=== PATIENT | male | born 1980 | race Caucasian/White ===

== ENCOUNTER 2023-11-23 07:16 | Outpatient (CLI) | payer OTHER, SELFPAY ==
--- NOTE | ~2023-11-23 | XR_ITS ---
AP, oblique, and lateral views of the right great toe CLINICAL HISTORY: Pain FINDINGS: No fracture or dislocation seen. Joint spaces are preserved. Soft tissues are unremarkable. IMPRESSION: Unremarkable exam. Reviewed, dictated and finalized at location M. IMPRESSION: Unremarkable exam.
[2023-11-23 07:53] LABS: Hematocrit 46.7 % (42.0-52.0); Hemoglobin 15.8 g/dL (14.0-18.0); Mean Corpuscular HGB Conc 33.8 g/dl (32-36); Mean Corpuscular Hemoglobin 30.4 pg (26-34); Mean Corpuscular Volume 89.8 fl (80-100); Mean Platelet Volume 10.4 fl (7.4-10.4); Platelet Count Result 192 k/mm3 (150-375); Red Cell Distribution Width 11.9 % (11.5-14.5); White Blood Count 5.4 K/mm3 (4.5-10.0)
[2023-11-23 07:58] LABS: Alanine Aminotransferase 91 U/L (6-50); Albumin Level 4.3 g/dL (3.5-5.1); Alkaline Phosphatase 111 U/L (38-126); Anion Gap 3 mmol/L (8-16); Aspartate Amino Transferase 53 U/L (17-59); Bilirubin,Total 0.8 mg/dL (0.2-1.3); Blood Urea Nitrogen 18 mg/dL (9-20); Calcium 9.2 mg/dL (8.4-10.2); Carbon Dioxide 31 mmol/L (22-30); Chloride 100 mmol/L (98-107); Cholesterol 191 mg/dL (0-200); Estimated Glomerular Filt Rate > 60; Glucose 96 mg/dL (65-110); HDL Direct 48 mg/dL; Potassium 3.7 mmol/L (3.4-5.0); Sodium 134 mmol/L (137-145); Triglycerides 114 mg/dL (<150); Uric Acid 7.3 mg/dL (3.5-8.5)
[2023-11-23 08:09] LABS: LDL Cholesterol Direct 117 mg/dL
[2023-11-23 17:04] LABS: Free T4 Free Thyroxine 1.27 ng/mL (0.78-2.19)
[2023-11-27 11:18] LABS: Testosterone Total 759 ng/dL (250-1100)
== END 2023-11-23 07:17 | disposition home or self-care (01) ==
PROVIDERS: PCP Nurse Practitioner; Visit Provider Nurse Practitioner
DX: M79.674 Pain in right toe(s) (principal); R53.83 Other fatigue
CPT/HCPCS: 36415; 73660; 80053; 80061; 84403; 84439; 84443; 84550; 85027